=== PATIENT | female | born 1980 | race Caucasian/White ===

== ENCOUNTER 2016-11-17 15:01 | Inpatient (IN) | payer BC, MEDICAID ==
[~2016-11-17] VITALS: Ht 160 cm; Wt 122.7 kg
[2016-11-17] VITALS (27 sets, daily range): BP systolic 130–212; BP diastolic 71–125; PULSE 75–101; TEMP 97.7–98.4
[2016-11-17] MEDS ORDERED: EXCEDRIN1 TAB PO (15:51)
[2016-11-17 16:07] LABS: ADJUSTED CALCIUM 9.6 mg/dL (8.4-10.2); ALBUMIN 3.5 gm/dL (3.5-5.0); BILIRUBIN,TOTAL 0.6 mg/dL (0.0-1.0); CALCIUM 9.2 mg/dL (8.4-10.2); CREATININE, serum 0.66 mg/dL (0.52-1.25); POTASSIUM 3.3 mmol/L (3.4-5.0); TOTAL PROTEIN 6.8 gm/dL (6.4-8.2)
[2016-11-17 16:07] LABS: BASO % 0.4 % (0.0-2.0); EOS # 0.3 (0.0-0.7); EOS % 2.4 % (0-4.0); GRAN # 8.1 (1.4-6.5); GRAN % 73.5 % (42.2-75.2); HEMATOCRIT 38.1 % (37.0-47.0); HEMOGLOBIN 13.1 g/dl (12.5-16.0); LYMPH % 18.6 % (20.0-51.0); MEAN CELL VOLUME 86 fl (80.0-100.0); MEAN CORPUSCULAR HEMOGLOBIN 30 pg (27.0-31.0); MEAN CORPUSCULAR HGB CONC 34 g/dl (33.0-37.0); MEAN PLATELET VOLUME 11.8 fl (7.4-10.4); MONO # 0.5 (0.1-0.6); MONO % 4.7 % (1.7-9.3); PLATELET COUNT 202 K/mm3 (130-400); RED BLOOD COUNT 4.43 M/mm3 (4.10-5.30); REDCELL DISTRIBUTION WIDTH-CV 13.4 % (11.5-14.5)
[2016-11-17 16:37] LABS: THYROID STIMULATING HORMONE 1.1 uIU/mL (0.465-4.680)
[2016-11-17 16:40] LABS: AMPHETAMINE URINE NEGATIVE; BARBITURATES URINE NEGATIVE; BENZODIAZEPINES URINE NEGATIVE; BUPRENORPHINE URINE NEGATIVE; METHADONE URINE NEGATIVE; OPIATES URINE NEGATIVE; OXYCODONE URINE NEGATIVE; PHENCYCLIDINE URINE NEGATIVE; PROPOXYPHENE URINE NEGATIVE; THC CANNABINOIDS URINE NEGATIVE
[2016-11-17 16:41] LABS: HIV 1/2 Antibodies Non-Reactive; HIV-1p24 Antigen Non-Reactive
[2016-11-17 23:22] LABS: HEPATITIS B SURFACE AB-QL Negative (())
[2016-11-18] VITALS (9 sets, daily range): BP systolic 121–160; BP diastolic 58–89; PULSE 77–94; TEMP 98–98.4
[2016-11-18] MEDS ORDERED: PERCOCET 325 MG1 TA2 PO (08:41)
[2016-11-18] MEDS ORDERED: IBU600 MG PO (08:41)
[2016-11-19 13:38] LABS: LUPUS ANTICOAGULANT INR 1.1 (()); LUPUS ANTICOAGULANT PT 12.1 sec (()); LUPUS ANTICOAGULANT PTT 30 sec (26 - 36)
[2016-11-19 13:57] LABS: .ANTICARDIOLIPIN IGG <9.4 GPL (())
[2016-11-19 14:00] LABS: .ANTICARDIOLIPIN IGM <9.4 MPL (())
[2016-11-19 14:15] LABS: LUPUS ANTICOAGULANT DRVVT 1.1 ratio (())
== END 2016-11-18 11:40 | disposition home or self-care (01) | DRG 774 ==
LOC: LDR 15:01
PROVIDERS: Obstetrics & Gynecology
PROC: 10E0XZZ Delivery of Products of Conception, External Approach (ICD-10-PCS; principal; 2016-11-17)
PROC: 3E0P7GC Introduction of Other Therapeutic Substance into Female Reproductive, Via Natural or Artificial Opening (ICD-10-PCS; 2016-11-17)
DX: O36.4XX0 Maternal care for intrauterine death, not applicable or unspecified (principal); O10.913 Unspecified pre-existing hypertension complicating pregnancy, third trimester; O26.23 Pregnancy care for patient with recurrent pregnancy loss, third trimester; Z3A.21 21 weeks gestation of pregnancy; Z37.1 Single stillbirth
CPT/HCPCS: J2270; J2405; J2795; J7120